=== PATIENT | male | born 1980 | race African-American/Black ===

== ENCOUNTER 2019-07-01 19:38 | Inpatient (IN) | payer MEDICAID, OTHER ==
[~2019-07-01] VITALS: Ht 177.8 cm; Wt 161.5 kg
[~2019-07-01 19:38] MED LIST: BACTRIM DS TAB1 EAC1 ORAL; KEFLEX500 MG ORAL
[2019-07-01] MEDS ORDERED: FUROSEMIDE20 M1 ORAL (19:48)
[2019-07-01] MEDS ORDERED: ALBUTEROL2.5 MG/3 M INH (19:49)
[2019-07-01 19:50] VITALS: BP 121/63
[2019-07-01] MEDS ORDERED: SINGULAIR10 MG ORAL (19:50)
--- NOTE | 2019-07-01 19:50 | NUR ---
ED Nurse Note: Patient brought in by ambulance from home d/t difficulty breathing or SOB. Patient stated he was just discharged from [facility] today for urinary sepsis. Patient aao x 4 and ambulatory. Patient no complaints of pain. Patient stated SOB started today and he has had cough with yellow sputum. Patient placed in gown and monitor technician. No acute distress noted during assessment.
--- NOTE | 2019-07-01 19:54 | NUR ---
ED Nurse Note: ERMD at bedside
--- NOTE | 2019-07-01 19:59 | Emergency Room Report ---
History of Present Illness General Chief Complaint: Upper Respiratory Illness Source: Patient, EMS (Wyatt Hartman MD) Present Illness HPI Disclaimer: Please note that this report is being documented using [employer] technology. This can lead to erroneous entry secondary to incorrect interpretation by the dictating instrument. HPI: 38-year-old male with a history of asthma, CHF, obesity, hypertension presents for evaluation of shortness of breath. Symptoms began today. He was at home resting watching TV when he suddenly felt short of breath. Denied wheezing or stridor. He reports cough beginning today somewhat productive as well as nasal congestion, postnasal drip. He has been feeling warm but no objective fever recordings. He does report chills. Reports nausea without vomiting or diarrhea. Denies skin rash. Did not receive a flu shot this year. He has been using his albuterol inhaler and his breathing machine at night as instructed. No recent steroid use. PMH: Asthma,CHF, obesity, hypertension PSH: Reviewed Allergies: Iodine Social Hx: Denies smoking (Wyatt Hartman MD) Allergies: Coded Allergies: IODINE (Unverified Allergy, Unknown, 06/03/14) SHELLFISH DERIVED (Unverified Allergy, Unknown, 06/03/14) Nursing Documentation-PMH Past Medical History: No History, Except For Hx Cardiac Problems: Yes - chf Hx Hypertension: Yes Hx Asthma: Yes Hx COPD: Yes Hx Diabetes: Yes (Wyatt Hartman MD) Review of Systems All Other Systems: negative except mentioned in HPI (Wyatt Hartman MD) Physical Exam Vital Signs Date Time Temp Pulse Resp B/P (MAP) Pulse Ox O2 Delivery O2 Flow Rate FiO2 07/01/19 19:42 98.1 101 20 165/80 (108) 99 Room Air General: Awake and alert, no acute distress HEENT: NC/AT. EOMI. Cardiovascular: RRR. S1 and S2 normal. No murmur appreciated Resp: Borderline tachypnea. Normal work of breathing. No cough, wheezing or crackles appreciated. Lung sounds are tight Skin: Intact. No abrasions, laceration or rash over the exposed skin MSK: Normal tone and bulk. Moving all extremities. No obvious deformity. Neuro: Awake and alert. Mentating appropriately. (Wyatt Hartman MD) Medical Decision Making Diagnostic Impression: Primary Impression: Asthma exacerbation Additional Impression: Upper respiratory infection ER Course 30-year-old male with history of asthma presents for evaluation of shortness of breath. Differential includes was not limited to viral syndrome, URI, influenza , pneumonia, asthma exacerbation, CHF exacerbation, ACS. Will send for chest x- ray, check labs, give breathing treatments and steroids. Will check an influenza swab as well. No respiratory distress on arrival. Laboratory Tests Test 07/01/19 21:00 White Blood Count 9.7 K/UL (4.8-10.8) Red Blood Count 3.56 M/UL (4.70-6.10) L Hemoglobin 11.9 G/DL (14.2-18.0) L Hematocrit 34.9 % (42.0-52.0) L Mean Corpuscular Volume 98 FL (80-99) Mean Corpuscular Hemoglobin 33.5 PG (27.0-31.0) H Mean Corpuscular Hemoglobin Concent 34.2 G/DL (32.0-36.0) Red Cell Distribution Width 11.9 % (11.6-14.8) Platelet Count 210 K/UL (150-450) Mean Platelet Volume 5.9 FL (6.5-10.1) L Neutrophils (%) (Auto) 87.4 % (45.0-75.0) H Lymphocytes (%) (Auto) 4.8 % (20.0-45.0) L Monocytes (%) (Auto) 5.9 % (1.0-10.0) Eosinophils (%) (Auto) 1.2 % (0.0-3.0) Basophils (%) (Auto) 0.7 % (0.0-2.0) Sodium Level 139 MMOL/L (136-145) Potassium Level 3.8 MMOL/L (3.5-5.1) Chloride Level 102 MMOL/L (98-107) Carbon Dioxide Level 27 MMOL/L (21-32) Anion Gap 11 mmol/L (5-15) Blood Urea Nitrogen 10 mg/dL (7-18) Creatinine 1.2 MG/DL (0.55-1.30) Estimate Glomerular Filtration Rate > 60 mL/min (>60) Glucose Level 99 MG/DL (74-106) Calcium Level 9.1 MG/DL (8.5-10.1) Total Bilirubin 0.9 MG/DL (0.2-1.0) Aspartate Amino Transferase (AST) 32 U/L (15-37) Alanine Aminotransferase (ALT) 48 U/L (12-78) Alkaline Phosphatase 63 U/L (46-116) Troponin I 0.115 ng/mL (0.000-0.056) Pro-B-Type Natriuretic Peptide 246 pg/mL (0-125) H Total Protein 7.8 G/DL (6.4-8.2) Albumin 3.4 G/DL (3.4-5.0) Globulin 4.4 g/dL Albumin/Globulin Ratio 0.8 (1.0-2.7) L Microbiology Date/Time Source Procedure Growth Status 07/01/19 20:04 Nasal Nares - Final Complete 07/01/19 20:04 Nasal Nares - Final Complete (Wyatt Hartman MD) ER Course Please refer to the initial note for the history and presentation multiple differentials including but not limited to cardiac , Cardiopulmonary and vascular process entertained patient's initial troponin did come back elevated Patient is admitted for further inpatient care given this finding Patient has allergy to iodine and therefore CT imaging of the chest cannot be obtained d-dimer was also mildly elevated Patient does not show any signs of pleurisy And will require further inpatient care Labs Test 07/01/19 21:00 07/01/19 22:56 White Blood Count 9.7 K/UL (4.8-10.8) Red Blood Count 3.56 M/UL (4.70-6.10) Hemoglobin 11.9 G/DL (14.2-18.0) Hematocrit 34.9 % (42.0-52.0) Mean Corpuscular Volume 98 FL (80-99) Mean Corpuscular Hemoglobin 33.5 PG (27.0-31.0) Mean Corpuscular Hemoglobin Concent 34.2 G/DL (32.0-36.0) Red Cell Distribution Width 11.9 % (11.6-14.8) Platelet Count 210 K/UL (150-450) Mean Platelet Volume 5.9 FL (6.5-10.1) Neutrophils (%) (Auto) 87.4 % (45.0-75.0) Lymphocytes (%) (Auto) 4.8 % (20.0-45.0) Monocytes (%) (Auto) 5.9 % (1.0-10.0) Eosinophils (%) (Auto) 1.2 % (0.0-3.0) Basophils (%) (Auto) 0.7 % (0.0-2.0) D-Dimer 0.65 mg/L FEU (0.00-0.49) Sodium Level 139 MMOL/L (136-145) Potassium Level 3.8 MMOL/L (3.5-5.1) Chloride Level 102 MMOL/L (98-107) Carbon Dioxide Level 27 MMOL/L (21-32) Anion Gap 11 mmol/L (5-15) Blood Urea Nitrogen 10 mg/dL (7-18) Creatinine 1.2 MG/DL (0.55-1.30) Estimat Glomerular Filtration Rate > 60 mL/min (>60) Glucose Level 99 MG/DL (74-106) Calcium Level 9.1 MG/DL (8.5-10.1) Total Bilirubin 0.9 MG/DL (0.2-1.0) Aspartate Amino Transf (AST/SGOT) 32 U/L (15-37) Alanine Aminotransferase (ALT/SGPT) 48 U/L (12-78) Alkaline Phosphatase 63 U/L (46-116) Troponin I 0.115 ng/mL (0.000-0.056) 0.102 ng/mL (0.000-0.056) Pro-B-Type Natriuretic Peptide 246 pg/mL (0-125) Total Protein 7.8 G/DL (6.4-8.2) Albumin 3.4 G/DL (3.4-5.0) Globulin 4.4 g/dL Albumin/Globulin Ratio 0.8 (1.0-2.7) (Rony Hernández DO) EKG Diagnostic Results EKG Time: 20:42 Rate: tachycardiac Rhythm: NSR ST Segments: no acute changes Other Impression Sinus tachycardia, normal axis, normal intervals, no ST segment changes (Wyatt Hartman MD) Rhythm Strip Diag. Results Rhythm Strip Time: 20:42 EP Interpretation: yes Rate: 100 Rhythm: NSR, no PVC's, no ectopy (Wyatt Hartman MD) EP Interpretation: yes Rate: 88 Rhythm: NSR, no PVC's, no ectopy (Rony Hernández DO) Chest X-Ray Diagnostic Results Chest X-Ray Diagnostic Results : Chest X-Ray Ordered: Yes # of Views/Limited/Complete: 1 View Indication: Shortness of Breath EP Interpretation: Yes Interpretation: no consolidation, no effusion, no pneumothorax, no acute cardiopulmonary disease Impression: No acute disease Electronically Signed by: Electronically signed by Dr. Wyatt Hartman (Wyatt Hartman MD) Chest X-Ray Diagnostic Results : Chest X-Ray Ordered: Yes # of Views/Limited/Complete: 1 View Indication: Chest Pain EP Interpretation: Yes Interpretation: no consolidation, no effusion, no pneumothorax Impression: No acute disease Electronically Signed by: Rony Hernández DO (Rony Hernández DO) Reevaluation Time: 22:31 Last Vital Signs Date Time Temp Pulse Resp B/P (MAP) Pulse Ox O2 Delivery O2 Flow Rate FiO2 07/01/19 19:42 98.1 101 20 165/80 (108) 99 Room Air Reevaluation Impression EKG shows sinus tachycardia but no ischemia. No evidence of infiltrate on chest x-ray. Troponin returned elevated at 0.115. The patient denies chest pain his EKG is nonischemic. Will repeat troponin and send a d-dimer as well. He is slightly tachycardic. Patient will require admission. Aspirin ordered. (Wyatt Hartman MD) Status: improved (Rony Hernández DO) Disposition: ADMITTED INPATIENT Condition: Serious Scripts Prednisone* (PREDNISONE*) 20 Mg Tablet 40 MG ORAL DAILY for 5 Days, #10 TAB Prov: Wyatt Hartman MD 07/01/19 Wyatt Hartman MD Jul 01, 2019 19:59 Rony Hernández DO Jul 02, 2019 03:09
[2019-07-01] MEDS ORDERED: Solu-MEDROL 125mg Inj IVP ONE (20:00)
--- NOTE | 2019-07-01 20:02 | NUR ---
ED Nurse Note: xray at bedside
--- NOTE | 2019-07-01 20:20 | NUR ---
ED Nurse Note: Notified uJs at Pharmacy regarding no solumedrol in pyxis.
[2019-07-01] MEDS: Ipratropium 0.02% Inh Soln 2.5ml UD HHN SCH ×3 (20:49→21:05)
[2019-07-01] MEDS: Albuterol ud Inhalation HHN SCH ×3 (20:49→21:05)
--- NOTE | 2019-07-01 20:50 | Diagnostic Imaging Report ---
EXAM: XR Chest, 1 View CLINICAL HISTORY: SOB TECHNIQUE: Frontal view of the chest. COMPARISON: No relevant prior studies available. FINDINGS: Lungs: Unremarkable. No consolidation. Pleural space: Unremarkable. No pneumothorax. Heart: Heart is enlarged. Mediastinum: Unremarkable. Bones/joints: Unremarkable. IMPRESSION: No acute findings in the chest.
[2019-07-01 21:25] LABS: HEMATOCRIT 34.9 % (42.0-52.0); HEMOGLOBIN 11.9 G/DL (14.2-18.0); MEAN CORPUSCULAR VOLUME 98 FL (80-99); PLATELET COUNT 210 K/UL (150-450); RED BLOOD COUNT 3.56 M/UL (4.70-6.10); RED CELL DISTRIBUTION WIDTH 11.9 % (11.6-14.8); WHITE BLOOD COUNT 9.7 K/UL (4.8-10.8)
[2019-07-01 21:26] LABS: BASOPHILS % (AUTO) 0.7 % (0.0-2.0); EOSINOPHILS % (AUTO) 1.2 % (0.0-3.0); LYMPHOCYTES % (AUTO) 4.8 % (20.0-45.0); MONOCYTES % (AUTO) 5.9 % (1.0-10.0); NEUTROPHILS % (AUTO) 87.4 % (45.0-75.0)
[2019-07-01] MEDS ORDERED: PREDNISONE20 MG ORAL ×2 (21:27)
[2019-07-01 21:43] LABS: ANION GAP 11 mmol/L (5-15); BLOOD UREA NITROGEN 10 mg/dL (7-18); CALCIUM 9.1 MG/DL (8.5-10.1); CARBON DIOXIDE 27 MMOL/L (21-32); CHLORIDE 102 MMOL/L (98-107); CREATININE 1.2 MG/DL (0.55-1.30); POTASSIUM 3.8 MMOL/L (3.5-5.1); SODIUM 139 MMOL/L (136-145)
[2019-07-01 21:58] LABS: ALANINE AMINOTRANSFERASE 48 U/L (12-78); ALBUMIN 3.4 G/DL (3.4-5.0); ALBUMIN/GLOBULIN RATIO 0.8 (1.0-2.7); ALKALINE PHOSPHATASE 63 U/L (46-116); ASPARTATE AMINO TRANSFERASE 32 U/L (15-37); BILIRUBIN,TOTAL 0.9 MG/DL (0.2-1.0)
--- NOTE | 2019-07-01 22:21 | NUR ---
ED Nurse Note: patient provided with urinal.
[2019-07-01] MEDS ORDERED: Aspirin Baby 81mg ORAL ONE (22:30)
--- NOTE | 2019-07-01 22:30 | NUR ---
ED Nurse Note: ERMD at bedside.
--- NOTE | 2019-07-01 23:57 | NUR ---
ED Nurse Note: Report given to JOSE MIGUEL Olson in telemetry.
[2019-07-02] VITALS: BP 120/48
--- NOTE | 2019-07-02 00:10 | NUR ---
NURSE NOTES: received pt from JOSE MIGUEL Miller. Pt is transported via gurney, ambulated to bed. Belongings list signed at bedside. Pt on 2L nc. front desk monitor placed on patient, vitals obtained. Oriented pt to room and floor. Will seek admission orders.
--- NOTE | 2019-07-02 00:15 | NUR ---
ED Nurse Note: Patient transported via gurney to telemetry unit on medical services coordinator with ACLS protocol accompanied by 1 RN and urinalysis technician in stable condition.
[2019-07-02] MEDS ORDERED: Bactrim-DS 1 tab ORAL SCH (02:15)
[2019-07-02] MEDS ORDERED: Albuterol ud Inhalation HHN PRN (02:15)
[2019-07-02] MEDS ORDERED: Cephalexin 500mg cap ORAL SCH (02:15)
[2019-07-02 04:00] VITALS: BP 123/59
--- NOTE | 2019-07-02 07:05 | NUR ---
HAND-OFF: Report given Sandro RN. Endorsed plan of care.
--- NOTE | 2019-07-02 07:07 | NUR ---
NURSE NOTES: Received report from Prosper GILLESPIE. Pt in bed awake and oriented and able to make needs known. IV site in right wrist 22G SL patent and asymptomatic. On 2LPM via N/C. Denied SOB and Pain. Bed in lowest position and locked. Side railsx2 up for safety. Will continue to plan of care.
[2019-07-02 08:00] VITALS: BP 141/83
[2019-07-02] MEDS: Azithromycin 250mg tab ORAL SCH (08:46)
[2019-07-02] MEDS: Cephalexin 500mg cap ORAL SCH ×3 (08:46→20:22)
[2019-07-02] MEDS: Montelukast 10mg tablet ORAL SCH (08:46)
[2019-07-02] MEDS: Heparin 5000 units/ml inj SUBQ SCH ×2 (08:48→20:22)
[2019-07-02] MEDS: Bactrim-DS 1 tab ORAL SCH ×2 (08:49→20:22)
[2019-07-02 09:14] LABS: HEMATOCRIT 33.7 % (42.0-52.0); HEMOGLOBIN 11.6 G/DL (14.2-18.0); MEAN CORPUSCULAR VOLUME 97 FL (80-99); PLATELET COUNT 213 K/UL (150-450); RED BLOOD COUNT 3.47 M/UL (4.70-6.10); WHITE BLOOD COUNT 8.7 K/UL (4.8-10.8)
[2019-07-02 09:34] LABS: ANION GAP 11 mmol/L (5-15); BLOOD UREA NITROGEN 13 mg/dL (7-18); CALCIUM 9.3 MG/DL (8.5-10.1); CARBON DIOXIDE 24 MMOL/L (21-32); CHLORIDE 104 MMOL/L (98-107); POTASSIUM 4.6 MMOL/L (3.5-5.1); SODIUM 139 MMOL/L (136-145)
[2019-07-02] MEDS: Albuterol ud Inhalation HHN SCH ×5 (11:21→22:52)
[2019-07-02 12:00] VITALS: BP 124/72
--- NOTE | 2019-07-02 14:00 | Consultation ---
DATE OF CONSULTATION: 07/02/2019 CARDIOLOGY CONSULTATION CONSULTING PHYSICIAN: Benji Coto M.D. REQUESTING PHYSICIAN: Gil Liao M.D. REASON FOR CONSULTATION: Elevated troponin level. HISTORY OF PRESENT ILLNESS: This is an male, age 38, who presented to the hospital with wheezing and shortness of breath. He has a prior history of asthma as well as congestive heart failure. He was discharged two days ago [facility] where he was treated for sepsis due to urinary tract infection. He states that he has a history of high blood pressure and congestive heart failure for which he takes diuretics. The patient denies any prior history of heart attack, irregular heartbeat, congenital heart disease, or endocarditis. PAST MEDICAL HISTORY: Asthma, allergic rhinitis, hypertension, and congestive heart failure. FAMILY HISTORY: Noncontributory. SOCIAL HISTORY: Negative for smoking, alcohol, or substance abuse. MEDICATIONS: Reviewed. He is on Levaquin for urinary infection. REVIEW OF SYSTEMS: He has never had a stress test to his recollection. There is no history of abnormal blood clotting. There is no history of diabetes or thyroid disorder. PHYSICAL EXAMINATION: GENERAL: Moderately obese, no acute distress. VITAL SIGNS: Blood pressure 141/83, pulse 92, respirations 20, afebrile. LUNGS: Diminished breath sounds with few wheezes. CARDIAC: Regular rhythm and rate. Normal S1, S2 with no murmur, rub, or gallop. ABDOMEN: Obese. EXTREMITIES: With 1+ pretibial edema. LABORATORY DATA: White count 8.7, hemoglobin 11.6. Chemistry panel is normal, glucose is 158. Troponin is 0.115, repeated 0.102, repeated 0.015. Pro-natriuretic peptide 246. IMPRESSION AND PLAN: 1. bronchospasm, asthma with possible exacerbation. 2. Recovering UTI. 3. Elevated troponin, on admission may be an erroneous level. Clinically, there is no evidence of acute myocardial ischemia. His electrocardiogram is entirely normal and his repeat troponin today is normal as well. 4. He has some lower extremity edema, but no other clinical signs of pulmonary venous congestion. 5. Recommend treatment for his asthma per primary care physician. Maintenance diuretic, echocardiogram, outpatient stress test when asthma is controlled. 6. Hypertensive heart disease with diastolic dysfunction. Benji Coto M.D. DR: SOLO JOB#: [id number] CC:
--- NOTE | 2019-07-02 15:30 | History and Physical Report ---
DATE OF ADMISSION: 07/01/2019 CHIEF COMPLAINT AND REASON FOR HOSPITALIZATION: The patient admitted with shortness of breath, weakness, and questionable troponin. HISTORY OF PRESENT ILLNESS: The patient has a history of asthma since childhood, obesity, mild fluid retention for which he takes Lasix, became increasingly shortness of breath and came to the emergency room. The patient left [facility] just a few days ago. He was admitted there, had apparently urinary tract infection, hematuria, E. coli, UTI, and sepsis and was discharged on Keflex. ALLERGIES: To iodine. SURGICAL HISTORY: Left arm and gallbladder. The left arm has abscess in the axilla. HABITS: He is nondrinker, nonsmoker. MEDICATIONS: Include albuterol via [facility] p.r.n., Keflex 500 mg q.i.d., Lasix 20 mg daily, Singulair 10 mg daily, prednisone states 40 mg daily for five days, it is not clear if he is taking, Bactrim DS one every 12 hours. SYSTEM REVIEW: HEAD, EYES, EARS, NOSE, AND THROAT: Vision and hearing is good. ENDOCRINE: History of obesity. No known diabetes. History of hypothyroidism. He is also taking thyroid medicine, uncertain dose. PULMONARY: History of asthma since childhood. He has had short courses of prednisone many times. No TB. CARDIAC: No definite angina or [place]. He did have some tightness in his chest associated with shortness of breath on this admission. No history of arrhythmias. He has had leg edema. GASTROINTESTINAL: No ulcers or GI bleeding. GENITOURINARY: Recent UTI as above and he has had several UTIs in the past. MUSCULOSKELETAL: No deforming arthritis. NEUROLOGIC: No CVA or seizures. PHYSICAL EXAMINATION: GENERAL: The patient alert man, in no acute distress. VITAL SIGNS: BMI 51.1, temperature 97.9, pulse 86, pulse ox 92, respirations 20, blood pressure 141/83. HEAD, EYES, EARS, NOSE, THROAT: Sclerae are nonicteric. Ocular motions intact in all directions. Oral mucosa moist. NECK: No adenopathy. LUNGS: Clear. HEART: Regular rhythm. I hear no murmur. ABDOMEN: Soft without organomegaly or masses. EXTREMITIES: Show trace edema. NEUROLOGIC: He is alert and oriented. Cranial nerves are intact. LABORATORY DATA: Admission labs show white count of 9.7, hemoglobin is 11.9, electrolytes normal. Creatinine 1.2. BNP 246. Troponin 0.115 and 0.102. Urine not available. IMPRESSION: 1. Asthma with acute exacerbation. 2. History of recent E. coli UTI and sepsis on Keflex and Bactrim. 3. Morbid obesity. 4. Hypothyroidism. 5. Abnormal troponin, possible false positive. PLAN: We will get Cardiology consultation. Continue treatment for his asthma and sepsis. Observe his response to these measures. Gil Liao M.D. DR: HARRIS JOB#: [id number] CC:
[2019-07-02 16:00] VITALS: BP 101/47
[2019-07-02 18:09] LABS: APPEARANCE,URINE CLEAR; BILIRUBIN, URINE NEGATIVE (NEGATIVE); GLUCOSE, URINE (UA) NEGATIVE (NEGATIVE); KETONES,URINE NEGATIVE (NEGATIVE); LEUKOCYTE ESTERASE ,URINE NEGATIVE (NEGATIVE); NITRITE,URINE NEGATIVE (NEGATIVE); PH,URINE 6 (4.5-8.0); PROTEIN,URINE NEGATIVE (NEGATIVE); UROBILINOGEN,URINE NORMAL MG/DL (0.0-1.0)
[2019-07-02 18:17] LABS: COLOR,URINE YELLOW
--- NOTE | 2019-07-02 19:26 | NUR ---
HAND-OFF: Report given to Gabby GILLESPIE. Pt remains stable.
--- NOTE | 2019-07-02 19:35 | NUR ---
NURSE NOTES: Received report from JOSE MIGUEL Quiñones. Patient is awake lying semi-rosa's; resting comfortably. No signs of acute distress noted; denies pain at this time. On 2L nasal cannula. AOx4; able to make needs known. Checked IV site; patent and flushed. No erythema, bleeding, or infiltration noted. Bed at lowest position, brakes on, siderails up x2. Call light within reach. Will continue to monitor.
[2019-07-02 20:00] VITALS: BP 108/48
--- NOTE | 2019-07-02 20:33 | NUR ---
NURSE NOTES: Called Dr. Liao regarding patient's request for additional medication for his allergies. Was told, "I'm not giving any more PRNs until I see the patient tomorrow at 0900."
[2019-07-03] VITALS: BP 99/37
[2019-07-03] MEDS: Cephalexin 500mg cap ORAL SCH ×2 (02:58→09:03)
[2019-07-03] MEDS: Albuterol ud Inhalation HHN SCH ×3 (03:00→11:30)
[2019-07-03 04:00] VITALS: BP 103/58
--- NOTE | 2019-07-03 04:30 | NUR ---
NURSE NOTES: Patient is asleep lying semi-rosa's; resting comfortably. No signs of acute distress or pain noted at this time.
--- NOTE | 2019-07-03 07:23 | NUR ---
HAND-OFF: Report given to JOSE MIGUEL Quiñones. Patient is awake lying semi-rosa's; resting comfortably. On 2L nasal cannula. In stable condition.
--- NOTE | 2019-07-03 07:29 | NUR ---
NURSE NOTES: Received report from Gabby GILLESPIE. Pt in bed awake and orientedx3 and able to make needs known. IV site in Right wrist 22G SL patent and asymptomatic. On 2LPM via N/C. No c/o pain. C/o chest congestion. Will continue to notify Dr. Liao today. Call light within easy reach. Bed in lowest position and locked. Will continue to plan of care.
[2019-07-03 08:00] VITALS: BP 120/66
[2019-07-03] MEDS: Montelukast 10mg tablet ORAL SCH (09:03)
[2019-07-03] MEDS: Azithromycin 250mg tab ORAL SCH (09:03)
[2019-07-03] MEDS: Bactrim-DS 1 tab ORAL SCH (09:05)
[2019-07-03] MEDS: Heparin 5000 units/ml inj SUBQ SCH (09:06)
[2019-07-03 10:24] LABS: BASOPHILS % (AUTO) 1.8 % (0.0-2.0); EOSINOPHILS % (AUTO) 0.1 % (0.0-3.0); HEMATOCRIT 35.4 % (42.0-52.0); HEMOGLOBIN 11.9 G/DL (14.2-18.0); LYMPHOCYTES % (AUTO) 11.7 % (20.0-45.0); MEAN CORPUSCULAR VOLUME 99 FL (80-99); MONOCYTES % (AUTO) 8.5 % (1.0-10.0); NEUTROPHILS % (AUTO) 77.9 % (45.0-75.0); PLATELET COUNT 269 K/UL (150-450); RED BLOOD COUNT 3.59 M/UL (4.70-6.10); RED CELL DISTRIBUTION WIDTH 12.7 % (11.6-14.8); WHITE BLOOD COUNT 6.7 K/UL (4.8-10.8)
--- NOTE | 2019-07-03 10:32 | NUR ---
NURSE NOTES: The patient seen by Dr. Liao. Discharge home ordered with meds. Noted Saturating with 91% on room and Dr. Liao notified. No home O2 needed per Dr. Liao
[2019-07-03] MEDS ORDERED: QVAR7.3 GM INH (10:41)
[2019-07-03] MEDS ORDERED: ZITHROMAX250 MG ORAL (10:49)
[2019-07-03] MEDS ORDERED: PREDNISONE20 MG ORAL (10:50)
[2019-07-03] MEDS ORDERED: FLONASE ALLERG9.9 ML NS (10:51)
[2019-07-03 10:54] LABS: ANION GAP 13 mmol/L (5-15); BLOOD UREA NITROGEN 17 mg/dL (7-18); CALCIUM 8.5 MG/DL (8.5-10.1); CARBON DIOXIDE 25 MMOL/L (21-32); CHLORIDE 104 MMOL/L (98-107); CREATININE 1.3 MG/DL (0.55-1.30); POTASSIUM 4.1 MMOL/L (3.5-5.1); SODIUM 141 MMOL/L (136-145)
[2019-07-03 11:12] LABS: CHOLESTEROL 179 MG/DL (< 200); CKMB 0.7 NG/ML (0.0-3.6); CREATINE KINASE 303 U/L (26-308); HDL CHOLESTEROL 35 MG/DL (40-60); TRIGLYCERIDES 77 MG/DL (30-150)
[2019-07-03 12:00] VITALS: BP 119/53
--- NOTE | 2019-07-03 13:24 | NUR ---
NURSE NOTES: Made Dr. Liao aware of Synthoid not ordered for discharge Rx. Dr. Garcia states that resume the home meds and the meds on discharge prescription only. The patient does not need Synthroid".
--- NOTE | 2019-07-03 13:24 | NUR ---
NURSE NOTES: Made Dr. Liao aware of TSH level today. Per Dr. Liao, the patient does not need a prescription for Synthriod
--- NOTE | 2019-07-03 14:51 | NUR ---
NURSE NOTES: Per patient, he has been on levothyroxine at home but does not recall the dose of the meds.
--- NOTE | 2019-07-03 15:15 | NUR ---
Discharge: Patient is being discharged from medical care. Awake, alert and oriented x4. After care instructions, including referral to community resources were given. Patient verbalized understanding of After care instructions; at this time patient does not request medications, equipment or placement. Patient signed patient consent in the medical record for patient destination upon discharge. All medical devices such as desk monitor, IV and ID band were removed. A prescription including oral antibiotics and prednisone given to the patient. Patient ambulated out with all personal belongings with steady gait with his mother and RN's assist.
--- NOTE | 2019-07-03 17:30 | Discharge Summary ---
DATE OF ADMISSION: 07/01/2019 DATE OF DISCHARGE: 07/03/2019 PERTINENT HISTORY: The patient is a 38-year-old man with a history of asthma since childhood, who presents with some shortness of breath, weakness, and atypical chest pain. He was also completing a course of Keflex, which he was on in another hospital for urinary tract infection and sepsis. PERTINENT PHYSICAL FINDINGS: GENERAL: See my dictated History and Physical. LUNGS: Clear. HEART: Regular rhythm. ABDOMEN: Soft. EXTREMITIES: Trace edema. NEUROLOGIC: Negative. COURSE IN THE HOSPITAL: The patient was admitted with asthma exacerbation. He received steroids, nebulized treatments, and empiric antibiotics. With the above treatment, he felt better. On the day of discharge, his lungs were clear. Heart, regular rhythm. Abdomen, soft. Extremities, no edema and he was in no distress. He had no chest pain. Note, he had a borderline troponin of uncertain significance and he can be followed in the outpatient setting by his primary care physician. FINAL DIAGNOSES: 1. Asthma exacerbation. 2. History of recent urinary tract infection and sepsis. 3. Morbid obesity. PLAN: Discharge home on his prior to admission medications and Zithromax 250 mg daily for four days, prednisone 40 mg daily for four day, QVAR inhaler or equivalent per his pharmacy, and Flonase nasal spray in each nostril twice a day. Follow up by his primary care physician. Gil Liao M.D. DR: CHANCE JOB#: [id number] CC:
--- NOTE | 2019-07-04 01:30 | Progress Note ---
DATE: 07/03/2019 CARDIOLOGY PROGRESS NOTE SUBJECTIVE: The patient has no new complaints. Shortness of breath has improved. Echocardiogram revealed normal ejection fraction with no pulmonary hypertension. Labs notable for chemistry panel within normal limits. Troponin negative. TSH 15 and total cholesterol 179 with low HDL of 35. OBJECTIVE: VITAL SIGNS: Blood pressure 120/66, pulse 108, respiratory rate 22, and afebrile. LUNGS: Diminished breath sounds. No rales. CARDIAC: Regular rhythm and rate. Normal S1 and S2 with no murmur, rub, or gallop. ABDOMEN: Soft. EXTREMITIES: No edema. LABORATORY DATA: TSH was elevated at 15. IMPRESSION: 1. Obesity. 2. Acute diastolic congestive heart failure precipitated by hypertensive urgency, now resolved. 3. Hypothyroidism. 4. Asthma exacerbation. 5. Low HDL syndrome. PLAN: 1. Oral thyroid replacement. 2. Exercise program to increase HDL level with concomitant weight loss efforts. 3. Continue current antihypertensive regimen. Benji Coto M.D. DR: SCOTTY JOB#: [id number] CC:
== END 2019-07-03 15:15 | disposition home or self-care (01) | DRG 202 ==
LOC: EDBD 19:38 → EMR 21:31 → 2E 23:22 → EDBEDREQ 23:43
DX: J45.901 Unspecified asthma with (acute) exacerbation (principal); I50.31 Acute diastolic (congestive) heart failure; N39.0 Urinary tract infection, site not specified; J06.9 Acute upper respiratory infection, unspecified; I11.0 Hypertensive heart disease with heart failure; Z88.8 Allergy status to other drugs, medicaments and biological substances; E66.01 Morbid (severe) obesity due to excess calories; E03.9 Hypothyroidism, unspecified; I16.0 Hypertensive urgency
CPT/HCPCS: 36415; 71045; 80048; 80053; 80061; 81003; 82550; 82553; 82962; 83036; 83880; 84443; 84484; 85007; 85025; 85379; 86710; 87081; 93005; 93306; 94640; 94664; 96374; 99285